=== PATIENT | male | born 1950 | race Caucasian/White ===

== ENCOUNTER 2019-05-05 16:46 | Inpatient (IN) | payer OTHER ==
[~2019-05-05] VITALS: Ht 185.4 cm; Wt 78.5 kg
[2019-05-05] MEDS ORDERED: LEVOTHYROXINE500 MCG PO (18:28)
[2019-05-05] MEDS ORDERED: SIMVASTATIN20 MG PO (18:30)
[2019-05-05] MEDS ORDERED: DEPAKOTE 250MG250 MG PO (18:34)
[2019-05-05] MEDS ORDERED: EFFEXOR XR150 MG PO (18:38)
[2019-05-05] MEDS ORDERED: CLONAZEPAM 0.50.5 M1 PO (18:39)
[2019-05-05] MEDS ORDERED: RAYOS5 MG PO (18:40)
--- NOTE | 2019-05-05 18:44 | NUR ---
1810: Admitted to room 521-A via gerney accomp by EMS from [facility]. Pt awake, gives verbal consent and agreement to voluntary admit, pt extremely defensive with questions and interview from this fiction and nonfiction writer prose, stating to other staff that "she crossed the line and better watch out." Denny Tracy, ALIA and Dr. Bello notified of admission, [facility] order set initiated, med reconcilation completed, consents and face sheet printed and in chart, care plan and PI initiated.Report to oncoming shift @ 1900.
[2019-05-05 19:57] VITALS: BP 152/107
[2019-05-05 22:01] VITALS: BP 144/86
--- NOTE | 2019-05-06 03:11 | NUR ---
Patient observed in the bathroom, reports feeling nauseated. Reports that he has been "throwing up". White phlegm, mucous visible in the toilet. Patient offered saltine crackers. Nurse administered PRN Zofran PO. Patient accepted and is laying back down in bed.
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
--- NOTE | 2019-05-06 06:55 | NUR ---
On 05/05/19 at 2014, patient pacing halls. Demanding for his personal belongings. Educated on admission process and need to inventory belongings. Patient became beligerent, intrusive to staff. Started to ball fists and threaten staff. ALIA Tracy notified. Order obtained for Geodon 10mg IM q12 hours PRN for severe agitation. IM administered at 2024. Security notified prior. Patient cooperative with injection. Made some frustrations known of wanting a pillow and that he is hungry. Patient also provided clothing available. Spoke with patient with security on appropriate communication of wants and needs and that threatening others will not be accetable. Patient reports understanding.
[2019-05-06 08:00] VITALS: BP 140/103
[2019-05-06 09:58] VITALS: BP 140/103
--- NOTE | 2019-05-06 15:36 | NUR ---
SW met with pt's spouse in the hallway. She does not want to meet with him yet. She also does not think he wants her involved. She described the incident on the weekend and was frightened by his rage and HI. She states that since his brain tumor in 2011 he has not been the same. He became delusional, insets himself into war movies, sleeps all day, and has no hobbies. Her phone number is [phone].
--- NOTE | 2019-05-06 17:21 | EKG ---
[address] [place] [address] ELECTROCARDIOGRAM REPORT Name: MARIELLE JOVEL Room #: 521A-A ADM IN M.R.#: [id number] Admission: 05/05/19 Attend Phys: Kendall Tafoya DO Discharge: Date of : 46 Report #: [id number] THIS REPORT FOR: //name// [facility] Test Date: 2019-05-06 Test Time: 16:04:10 Pat Name: MARIELLE JOVEL Department: Room: 521A A Gender: M Park Warden: Krystina BOYD : 1950 Requested By: Harmoyn Dickerson Order Number: [id number] MD: Rosalino Mcgrath Measurements Intervals [place] Rate: 95 P: 67 DE: 134 QRS: 7 QRSD: 78 T: 70 QT: 326 QTc: 410 Interpretive Statements Sinus rhythm Normal tracing No previous ECG available for comparison Electronically Signed On 05-06-2019 17:21:09 CDT by Rosalino Mcgrath [email or web address] <ELECTRONICALLY SIGNED> By: Rosalino Mcgrath MD, [facility] 05/06/19 1721 1604 1604 Rosalino Mcgrath MD, FACC /EPI
[2019-05-06 20:17] VITALS: BP 94/64
[2019-05-06 23:03] VITALS: BP 94/64
--- NOTE | 2019-05-07 02:58 | NUR ---
PT IN BED AT BEGINNING OF SHIFT. SURLY, BUT ALLOWED STAFF TO PERFORM PHYSICAL ASSESSMENT AND VS. REFUSED EVENING SNACK AND REMAINED IN ROOM. TOOK HS MEDS W/O PROBLEM. CONTINUED TO REST QUIETLY THROUGH THE NIGHT TO THIS POINT.
[2019-05-07 08:00] VITALS: BP 129/91
--- NOTE | 2019-05-07 08:00 | NUR ---
PT UP WALKING THIS AM. PT SITTING AND TALKING WITH NURSE. PT HAS FLIGHT OF IDEAS, PT TALKING ABOUT THE , PROSTITIS DZ, AND DIET RESTICTIONS DUE TO PROSTITIS. PT IS PARANOID ABOUT IF OTHERS ARE TALKING ABOUT HIM OR HOW OTHERS PERCIEVE HIM.
[2019-05-07 09:08] VITALS: BP 129/91
--- NOTE | 2019-05-07 13:08 | NUR ---
SW introduced herself to pt and asked if there was anything she could assist him with at this moment. Pt responded that he intends to go on [employer], and that his family does not believe he is very funny. He also talked about his grandchildren. SW team will continue to follow pt during his stay.
--- NOTE | 2019-05-07 23:25 | NUR ---
Pt assisted with lowering an agitated peers walker and walked with him out of a room and redirected pt not to attempt to harm staff. Dr Tafoya notified, pts nurse notified, supervisor tunnel heading notified. Pt did not want his family notfiied.
[2019-05-07 23:42] VITALS: BP 151/98
--- NOTE | 2019-05-08 03:48 | NUR ---
ASSUMED CARE @ 19:15 ON 05/07/19. IN BED RESTING, OPENS EYES TO VOICE. CONVERSATION PACE IS RAPID WITH FLIGHT OF IDEAS RANGING FROM DANGEROUS MISSIONS TO THE REASON HIS WANTS TO LEAVE HIM. ACCEPTED HIS MEDICATION WHOLE WITH THIN LIQUID WATER. DENIES AV HALLUCINATIONS. DENIES SI, HOWEVER SAYS THAT HE WOULD BE RIGHT IN HURTING HIS BECAUSE OF WHAT SHE HAS DONE.
[2019-05-08 04:03] VITALS: BP 151/98
--- NOTE | 2019-05-08 06:02 | NUR ---
8.2 HOURS OF SLEEP OVERNIGHT.
[2019-05-08 11:17] VITALS: BP 130/60
[2019-05-08 19:38] VITALS: BP 93/57
--- NOTE | 2019-05-09 05:35 | NUR ---
1909- Report received from day shift nurse and care assumed. He was isolative in his room and talked disorganized sentences about delusions in his head, such as "you know what happened last nite" and other things except those sentences were scattered words incomprehensible. He was talkative however with good eye contact lying in his bed and was med. compliant with HS meds., denied pain and compliant with assessment.
--- NOTE | 2019-05-09 06:35 | NUR ---
The pt. was cooperative with the CXR this morning and with [facility] lab draw also. He was incontinent of urine and changed in the nite routinely and bed alarm set and he had no further seizure activity since 2199 last nite. BP = 151/80, p=80, T=98.3 at 0620 and he had no further coughing episodes since last last nite. Head elevated and fall and seizure and aspiration precautions in place.
[2019-05-09 09:01] VITALS: BP 132/68
[2019-05-09 09:05] VITALS: BP 108/56
--- NOTE | 2019-05-09 16:33 | NUR ---
CAESAR was asked by psych doctor to schedule a family meeting with pt's Nely to discuss discharge. CAESAR contacted pt's Nely who said 11:45 on 05/10 was okay for a meeting. She wanted SW to contact her if pt was not okay with her coming. CAESAR spoke with pt and explained the plan. He did not mention to her that he did not want his there; instead he discussed the movie [employer]. CAESAR will continue to follow pt during his stay.
--- NOTE | 2019-05-09 19:13 | NUR ---
HAS BEEN OUT OF ROOM MORE TODAY-ATTENDED SCHEDULED GROUPS WITH PROMPTING AND DID PARTICIPATE-SOCIAL WITH PEERS AT MEALTIME-REMAINS HYPERVIGILANT ON UNIT-CONTINUES TO HAVE MILD PARANOIA IN FORM OF IDEAS OF REFERENCE. DENIES C/O PAIN. CONSTRICTED AFFECT
[2019-05-09 19:42] VITALS: BP 129/94
--- NOTE | 2019-05-09 22:57 | NUR ---
PT INTERACTING WITH MALE PEERS IN HIS ROOM AND HALLWAY. SMILING CHEERFUL, PT TOOK A SHOWER. COMPLIANT WITH HS MEDS AND SNACK. REQUESTED LAUNDRY TO BE DONE.
[2019-05-10 08:28] VITALS: BP 112/77
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
--- NOTE | 2019-05-10 15:42 | NUR ---
Up ambulating in unit w/o s/o distress. Conversive with staff and peers. Alert, orientated to place and self. Denies SI/HI. Talks about past extensively and makes alot of references to movies. Color pink with brisk capillary refill and palpable peripheral pulses. Reg HR auscultated. Breath sounds clear t/o, bilaterally equal. Bowel sounds very hyperactive after breakfast, states he has heartburn. PRN med given. Abdomen soft and rounded. 1400 Discouraged after family/staff meeting. Sleeping in room. States he does not want to see his . Out to dining table for lunch and then to CT scan per wheelchair. Now back in room, appears to be sleeping.
--- NOTE | 2019-05-10 16:14 | NUR ---
SW attempted to complete a cognitive assessment with pt. He was in his room asleep. SW team will continue to follow pt during his stay.
--- NOTE | 2019-05-10 16:15 | NUR ---
SW attended a family meeting with psych doc, pt, and pt's . Pt and his were asked if the plan was for pt to return home. Pt's seemed unsure due to his threatening behavior before admission into unit. Pt began to ramble about several things including that he believes his was stealing money and several other incoherent phrases. Pt did not answer questions directly and tended to go into either a movie or a paranoid thought. Pt's was asked if she was DPOA and she said she is; she said she can bring paperwork to the facility. Pt's was asked if she would like her to undergo testing for possible cognitive dysfunction and dementia, and she said she does. Pt's said much of his current behavior began approx. 7 months ago. Psych doctor asked if she knew the pathology of pt's brain tumor that was discovered years ago, and she said she does not but that he had the procedure completed at [facility]. She said she will sign a IRWIN for those records and bring back the paperwork for DPOA. Pt said he would stay if he had an independent room. Pt's stated that is what he does at home; pt secludes himself in his room. The psych doctor denied the request of pt staying in and individual room explaining that would not be helpful to him. Psych doctor also stated he would like a cognitive assessment to be completed possibly this afternoon. Pt's brought back DPOA paperwork. SW team will continue to follow pt during his stay.
[2019-05-10 20:38] VITALS: BP 116/79
[2019-05-11 00:06] LABS: GLYCOHEMOGLOBIN (HGB A1C) 5.5 % (4.8-5.6)
--- NOTE | 2019-05-11 02:38 | NUR ---
ASSUMED CARE @ 19:15 ON 05/10/19. AMBULATES FROM BEDROOM TO DAY ROOM, A&O X 3-4. DENIES SI, HI AND A MARIO WELL V MARIO. MEDICATIONS TAKEN WHOLE WITH WATER. MYLANTA 15 ML PROVIDED PRN REQUESTED FOR STOMACH UPSET. ZOFRAN PROVIDED PRN FOR STOMACH NAUSEA. PRN TYLENOL 650 PROVIDED FOR ESTEVEZ 5/10 HGa1c RESULTS 5.5, GLUCOSE 111.
[2019-05-11 02:45] VITALS: BP 116/79
[2019-05-11 08:00] LABS: FOLIC ACID 32.6 ng/mL (8.6-58.9)
--- NOTE | 2019-05-11 11:46 | NUR ---
SW completed Slums examination with Pt. Pt scored 22 out of a possible 30. This score indicates Mild neurocognitive disorder. Pt was alert, engaged, and oriented during the examination.
[2019-05-11 19:45] VITALS: BP 141/78
--- NOTE | 2019-05-11 20:00 | NUR ---
Assumed care @ 19:15 on 05/11/19. In bed, awake, Alert and oriented x 3. denies SI/HI. Denies a/v hallucination. heart rrr, lungs cta, abd normoactive x 4 q. Reports bm today, normal.
[2019-05-11 22:47] VITALS: BP 141/78
--- NOTE | 2019-05-12 00:33 | NUR ---
TOOK HS MEDS WHOLE WITH WATER. IN BED ASLEEP, GOT UP TO USE TOILET AND CAME TO THE DAY ROOM FOR A GLASS OF ICE WATER. RETURNED TO BED, AND SLEEPING AT THIS WRITING. BED IN LOW POSITION, BED LOCKED. AMBULATES AD ELYSIA, NO BED ALARM REQUIRED.
--- NOTE | 2019-05-12 05:15 | NUR ---
SLEPT 9.2 HOURS OVERNIGHT
[2019-05-12 09:03] VITALS: BP 101/58
[2019-05-12 11:04] VITALS: BP 101/58
--- NOTE | 2019-05-12 11:17 | NUR ---
ASSUMED CARE AT 0700 THIS MORNING. PT. SECLUSIVE IN HIS ROOM. HE COMES OUT TO EAT AND RETURNES TO HIS ROOM AND BED. HIS WILL INTERACT UPON APPROACH ONLY. AWAKE, ALERT AND ORIENTED TIMES 3-4. TOOK HIS AM MEDICATIONS WITHOUT PROBLEMS. DENIES HI/SI, OR AVH.
--- NOTE | 2019-05-12 15:09 | NUR ---
TOOK JOEY TO THE PT. 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 HE TALKED ABOUT HIS TAKING CONTROL OF ALL HIS MONEY AND POSESSIONS. HE SEEMED GENUINELY UPSET WITH THESE TURN OF EVENTS. HE BELIEVES HE WILL HAVE NO WHERE TO GO WHEN HE LEAVES. HE RAMBLED ON OVER THE SAME SUBJECTS LISTED ABOVE.
[2019-05-12 19:52] VITALS: BP 139/77
--- NOTE | 2019-05-12 22:27 | NUR ---
ASSUMED CARE @ 19:15 ON 05/12/19. IN BED, AWAKE AND ORIENTED X 2. REMEMBERS THAT HE WAS IN THE , BUT DOES NOT KNOW TODAYS DATE. TOOK HS MEDS WHOLE WITH WATER. AFTER EVENING SNACK, TOOK PRN MYLANTA. REPORTS THAT IT HELPS HIS STOMACH. WOKE UP @ 2145 AND CAME TO THE DAY ROOM. REQUESTED SOMETHING FOR SLEEP, PRN QUETIAPINE PROVIDED. RETURNED TO BED AFTER 15 MINUTES. BED IN LOW POSITION, WILL CONTINUE TO MONITOR Q 12 MINUTES FOR PATIENT SAFETY.
[2019-05-12 22:44] VITALS: BP 139/77
--- NOTE | 2019-05-13 05:36 | NUR ---
slept 7 hours overnight.
[2019-05-13 08:09] VITALS: BP 118/69
[2019-05-13 11:10] VITALS: BP 118/69
--- NOTE | 2019-05-13 13:44 | NUR ---
CAESAR received a call from pt's Nely who wanted an update. CAESAR explained that pt's doctor will be enacting the DPOA due to him determing pt cannot make decisions at this time. She also explained pt will be undergoing other tests and there isn't a d/c plan at this time. She said ok. SW team will continue to follow pt during his stay.
--- NOTE | 2019-05-13 16:03 | NUR ---
THE PATIENT WAS ORDERED A PSYCH EVAL TODAY 1330. HIS DAUGHTERS WERE GIVEN HIS CODE TO BE ABLE TO TALK TO HIM. HE IS INDEPENDENT PER TOILETING. HE AMBULATES WITH A STEADY GAIT. VITAMIN D WAS ADDED TODAY. HE HAS BEEN QUIET AND CALM. NO PARTICIPATING IN GROUPS TODAY. HE IS CONCERNED WITH GOING HOME. THE PATIENT EXPESSED THAT HE WAS TOLD HE WOULD GO HOME TODAY BUT DID NOT. HE STATED THAT HE IS JUST WAITING.
[2019-05-13 20:14] VITALS: BP 129/76
[2019-05-13 22:51] VITALS: BP 129/76
--- NOTE | 2019-05-14 03:43 | NUR ---
PT RESTING QUIETLY IN ROOM AT START OF SHIFT. ALLOWED STAFF TO DO PHYSICAL ASSESSMENT W/O PROBLEM. INTERACTED WITH STAFF APPROPRIATLY. PREOCCUPIED WITH GETTING OUT OF HERE AND GOING HOME. SULLEN AND CONTINUED TO ISOLATE IN ROOM ALL EVENING. CAME OUT BRIEFLY FOR SNACK AND TOOK HS MEDS W/O PROBLEM. HAS SLEPT WELL THROUGH THE NIGHT TO THIS POINT.
[2019-05-14 09:04] VITALS: BP 133/78
[2019-05-14 11:12] VITALS: BP 133/78
[2019-05-14 11:21] VITALS: BP 133/78
--- NOTE | 2019-05-14 16:54 | NUR ---
THE PATIENT HAS BEEN COOPERATIVE AND COMPLIANT WITH MEDICATIONS. HE DID PARTICIPATE IN GROUP TODAY. CONSULTS WERE PUT IN FOR THE PATIENT . HE WAS IN HIS ROOM THE MAJORITY OF THE DAY. HE GOES TO THE DAY ROOM FOR MEALS. HE HAS HAD NO CONCERNS THUS FAR TODAY. HE HAS BEEN CALM AND QUIET THROUGH OUT THE DAY.
[2019-05-14 19:06] LABS: SYPHILIS AB Negative (Negative)
[2019-05-14 20:19] VITALS: BP 127/67
--- NOTE | 2019-05-15 07:03 | NUR ---
1909-Report received from day shift nurse and care assumed. He was polite and cooperative, and med. compliant. He talked to the DrTalisha in the evening and told he was going to discharge at 1100 Wedn. He awakened in the night and asked if he could leave in the nite, he was re-educated and returned to sleep in the nite. He was polite this morning too.
[2019-05-15 07:30] VITALS: BP 138/91
[2019-05-15 09:51] VITALS: BP 127/67
--- NOTE | 2019-05-15 11:01 | NUR ---
Assess due to length of stay. Pt admit to [facility]. Eating 90-100% meals. Possible discharge noted soon per team conference meeting. Low nutrition risk
--- NOTE | 2019-05-15 12:15 | NUR ---
Psych doctor asked that outpatient services be set up for pt in preparation for discharge 05/16 at 12pm. He also would like a wrap-up meeting with pt and . CAESAR contacted [facility] and left a msg requesting an appt for pt. CAESAR contacted pt's PCP Dr. Gunn [phone] and left a msg with an update and requesting a call back to schedule an appt for pt. CAESAR contacted pt's Nely who wanted to know if pt is cleared to drive. After speaking with psych doctor, CAESAR explained to Nely that pt can drive in limited conditions for example no night driving, no extreme weather, and no unfamiliar places. Nely requested that pt be talked to about this issue before he is d/c tomorrow. Nely said that she believes pt should drive himself to appointments. CAESAR provided supportive listening, and then encouraged Nely to assist pt in getting to his appointments; especially so soon after discharge. She said ok. Nely also said she is okay with a family meeting at d/c with the doctor tomorrow. CAESAR provided an update to pt about his driving, his appointments, and his meeting with Nely tomorrow. SW team will continue to follow pt during his stay.
--- NOTE | 2019-05-15 16:05 | NUR ---
WAS ANXIOUS THIS AM THINKING HE WAS BEING DISCHARGED-SAW BELONGINGS BEHIND DESK AND WAS ATTEMPTING TO OPEN DOOR TO NURSES STATION TO GET HIS BOOTS-VISIBLE IN DAYROOM WITH PEERS ATTENDING GROUP-SLIGHTLY MORE VERBAL WITH NURSING STAFF TALKING ABOUT THE WEATHER CONDITIONS AND WATCHING THE NEWS-CONTINUES TO HAVE POOR EYE CONTACT-SPEECH PRESSURED AND LOW VOLUME MAKING IT DIFFICULT TO UNDERSTAND.
--- NOTE | 2019-05-15 16:36 | NUR ---
CAESAR received a call from Jessica with [facility]. She asked a few questions to screen pt for eligibility, and then said pt will need to complete a walk in at [address] fromn 8am-5pm (before 2pm is best). He will need his i.d., proof of address (if address isnt on i.d.), and his insurance card. SW team will continue to follow pt during his stay.
[2019-05-15 21:09] VITALS: BP 133/81
--- NOTE | 2019-05-16 05:45 | NUR ---
1909-Report received from day shift nurse and care assumed. He was compliant with assessment and HS meds., isolative in his room and polite and relaxed. He slept well in the nite.
[2019-05-16 10:24] VITALS: BP 127/67
[2019-05-16] MEDS ORDERED: DEPAKOTE 250MG250 MG PO (12:38)
[2019-05-16] MEDS ORDERED: RISPERDAL 1 MG T1 MG PO (12:39)
[2019-05-16] MEDS ORDERED: EFFEXOR XR150 MG PO (12:39)
[2019-05-16] MEDS ORDERED: PANTOPRAZOLE SO40 M1 PO (12:39)
[2019-05-16] MEDS ORDERED: VITAMIN D5000 UNIT PO (12:40)
[2019-05-16] MEDS ORDERED: SYNTHROID100 MC1 PO (12:40)
--- NOTE | 2019-05-16 12:43 | NUR ---
CAESAR D/C note CAESAR met with pt's Nely, pt, and psych doc for a discharge meeting. Psych doctor explained to Nely and pt his disease process and the supports he will need. CAESAR provided the information for [facility], and also encouraged Nely to look into [employer] benefits since pt served in the at one point. Nely agreed to both. CAESAR also explained the info for [facility] will be on pt's d/c paperwork. No other needs for team to address at this time. [facility] [address] [place] [address]
[2019-05-16 14:29] VITALS: BP 144/78
--- NOTE | 2019-05-16 14:36 | NUR ---
0705 Report received from overnight shift, Patient ate breakfast and took medication without incidence. Patient has been cooperative and is suppose to discharge today. Patient has been pleasant and cooperative.
--- NOTE | 2019-05-16 14:38 | NUR ---
1415 Patient discharged to home with discharge instructions and scripts.
--- NOTE | 2019-05-19 19:22 | D ---
[facility] [place] [address] DISCHARGE SUMMARY Name: MARIELLE JOVEL Room #: 521A-A [facility] IN M.R.#: [id number] Admission: 05/05/19 Attend Phys: Kendall Tafoya DO Discharge: 05/16/19 Date of : 46 Report #: [id number] THIS REPORT FOR: //name// CC: Kendall Tafoya [facility] unknown DATE OF SERVICE: 05/16/2019 INPATIENT PSYCHIATRIC DISCHARGE SUMMARY ATTENDING PHYSICIAN: Kendall Tafoya DO VOCATIONAL TECHNICAL EDUCATION TEACHER: Prosper Bello MD DISCHARGE DIAGNOSES: Unspecified psychosis, mild neurocognitive disorder, partner relational disorder, hypothyroidism, hyperlipidemia, gastroesophageal reflux disease. DISCHARGE PLAN: Discharging to his home where he lives with his . The patient will get psychiatric and psychotherapy services at [facility]; will need to go there for an intake. The patient should follow up with his primary care physician within 1 month; believe that is Dr. Gunn. DISCHARGE DIET: Regular. ACTIVITY LEVEL: As tolerated. No alcohol, no illicit drugs. DISCHARGE MEDICATIONS: Risperidone 1 mg p.o. b.i.d. for psychosis, pantoprazole 40 mg p.o. daily for GERD, levothyroxine 100 mcg p.o. daily for hypothyroidism, cholecalciferol 5000 international units per day for supplementation, simvastatin 20 mg p.o. daily and for the time being, prednisone 5 mg p.o. daily. He has an appointment coming up in June with Neurology at [facility]. I do have a question if he needs to be on long-term catabolic steroid therapy given his brain tumor is benign and he has been quite stable for some time. Continue Depakote 500 mg p.o. b.i.d. and Effexor XR 150 mg p.o. daily for depression. Recommend patient not taking clonazepam due to disinhibition ____ concerns. REASON FOR ADMISSION: Referred from [facility] for being acutely psychotic and making threatening statements to his and his [id number]. HOSPITAL COURSE: The patient was admitted to Geriatric Psychiatry Unit. Initially, the patient was guarded. We did get him to take risperidone after a day or two. His [facility] Mental Status Examination score was 22/30. I elected to have Dr. Ian Mcdonnell, the neuropsychologist, examine him. The [address] [address] DISCHARGE SUMMARY Name: MARIELLE JOVEL Room #: 521A[facility] IN .R.#: [id number] Admission: 05/05/19 Attend Phys: Kendall Tafoya DO Discharge: 05/16/19 Date of : 46 Report #: [id number] patient does have a number of deficits. At present, he is still in mild neurocognitive disorder range, but certainly is at increased risk for decline. These factors were explained at length to the patient and his and the need for ongoing surveillance. Dr. Mcdonnell himself would like the patient to have a repeat battery in 12 months with several periodic screenings being done in between. The patient improved during the hospitalization and we had a family meeting with his . They have been living what he says separate lives under the same roof. The areas the patient needs support were discussed, the fact that the patient's driving should be very limited, recommend formal driving evaluation. currently, it should be local roads, daylight, good weather conditions. They were advised resources for getting a refrigerated company driver's evaluation such as [facility] or [facility]. Vital signs on the day of discharge are as follows: Temperature is 36.5, pulse 54, respirations 16, BP 144/70, O2 sat 97%. On physical exam, normal gait and station. MENTAL STATUS EXAMINATION: This is a well-developed, fairly nourished, disheveled male, appearing stated age. Attention intact. Concentration intact. Speech low, normal tone. Thought process linear and limited. Thought content, focused on discharge. No psychomotor agitation or psychomotor retardation. Mood and affect, congruent, constricted. Insight limited. Judgment, fair to limited. Fund of knowledge, high average range. PROGNOSIS: For this patient is fair to guarded and his 's participation going forward can have a protective effect. <ELECTRONICALLY SIGNED> By: Kendall Tafoya DO 05/19/19 1922 [id number] [id number] Kendall Tafoya DO /nt
== END 2019-05-16 14:15 | disposition home or self-care (01) | DRG 885 ==
LOC: SBH 16:46
PROVIDERS: ADMIT Psychiatry & Neurology Psychiatry
DX: F29 Unspecified psychosis not due to a substance or known physiological condition (principal); F20.9 Schizophrenia, unspecified; F39 Unspecified mood [affective] disorder; G31.84 Mild cognitive impairment of uncertain or unknown etiology; E03.9 Hypothyroidism, unspecified; E78.5 Hyperlipidemia, unspecified; K21.9 Gastro-esophageal reflux disease without esophagitis; F32.9 Major depressive disorder, single episode, unspecified; F22 Delusional disorders; Z79.899 Other long term (current) drug therapy; Z86.011 Personal history of benign neoplasm of the brain
CPT/HCPCS: 10880